=== PATIENT | male | born 1965 | race Caucasian/White ===

== ENCOUNTER 2019-06-01 17:41 | Emergency (ER) | payer SELFPAY ==
[2019-06-01] MEDS ORDERED: ROCURONIUM BROMIDE 50 MG/5 ML VIAL ONE (17:42)
[2019-06-01] MEDS ORDERED: ETOMIDATE INJ 20MG/10ML VIAL ONE (17:42)
[2019-06-01] MEDS ORDERED: PROPOFOL 1,000 MG in APPROPRIATE DILUENT 1 EA IV SCH (18:13)
[2019-06-01] MEDS ORDERED: ROCURONIUM BROMIDE 50 MG/5 ML VIAL IV ONE (18:15)
[2019-06-01] MEDS ORDERED: ETOMIDATE INJ 20MG/10ML VIAL IV ONE (18:15)
--- NOTE | 2019-06-01 18:28 | REPVR ---
EXAM: CT Head Without Contrast EXAM DATE/TIME: 06/01/2019 6:00 PM CLINICAL HISTORY: 53 years old, male; Altered mental status/memory loss; Additional info: Confusion, HTN, stroke like symptoms TECHNIQUE: Imaging protocol: Computed tomography images of the head without contrast. Coronal and sagittal reformatted images were created and reviewed. Radiation optimization: All CT scans at this facility use at least one of these dose optimization techniques: automated exposure control; mA and/or kV adjustment per patient size (includes targeted exams where dose is matched to clinical indication); or iterative reconstruction. COMPARISON: No relevant prior studies available. FINDINGS: Brain: Confluent hypodensity in the right occipital lobe. This is favored to represent an acute to subacute ischemic infarct. Chronic small vessel ischemic changes in the bilateral periventricular white matter. No acute intracranial hemorrhage. No midline shift. Basal cisterns are patent. Ventricles: Normal. No ventriculomegaly. Bones/joints: No acute fracture. Sinuses: Unremarkable as visualized. No acute sinusitis. Mastoid air cells: Visualized mastoid air cells are well aerated. No mastoid effusion. Soft tissues: Unremarkable. IMPRESSION: 1. There appears to be an acute to subacute ischemic infarct in the right occipital lobe. 2. No acute intracranial hemorrhage. Electronically signed by: Maci Charlton On 06/01/2019 18:27:55 PM
[2019-06-01 18:29] LABS: BASO # 0.1 10^3/uL (0.0-0.2); BASO % 0.5 % (0.0-1.0); EOS # 0.1 10^3/uL (0.0-0.50); EOS % 0.3 % (0.0-3.0); HEMATOCRIT 47.7 % (42.0-52.0); HEMOGLOBIN 16.8 g/dl (13.5-17.5); LYMPH # 2.8 10^3/uL (1.5-4.5); MEAN CORPUSCULAR HEMOGLOBIN 31.7 pg (27.0-33.0); MEAN CORPUSCULAR HGB CONC 35.2 g/dl (32.0-36.5); MONO % 4.5 % (0.0-5.0); NEUTROPHILS # 17.4 10^3/uL (1.8-7.7); NEUTROPHILS % 80.8 % (36.0-66.0); PLATELET COUNT, AUTOMATED 361 10^3/uL (150-450); WHITE BLOOD COUNT 21.6 10^3/uL (4.0-10.0)
[2019-06-01 18:42] LABS: INR 0.98; PROTHROMBIN TIME 12.7 SECONDS (11.8-14.0)
[2019-06-01] MEDS ORDERED: niCARdipine IV 40 MG in APPROPRIATE DILUENT 1 EA IV SCH (18:42)
[2019-06-01 18:51] LABS: BLOOD UREA NITROGEN 14 MG/DL (7-18); CALCIUM LEVEL 9.6 MG/DL (8.5-10.1); CARBON DIOXIDE LEVEL 24 MEQ/L (21-32); CHLORIDE LEVEL 108 MEQ/L (98-107); CK-MB VALUE MASS < 1.0 NG/ML (<3.6); CPK CREATINE PHOSPHOKINASE 77 U/L (39-308); CREATININE FOR GFR 1.48 MG/DL (0.70-1.30); GLOMERULAR FILTRATION RATE 52.5 (>56); GLUCOSE, FASTING 223 MG/DL (70-100); POTASSIUM SERUM 3.9 MEQ/L (3.5-5.1); SODIUM LEVEL 142 MEQ/L (136-145); TROPONIN I < 0.02 NG/ML (< 0.10)
[2019-06-01] MEDS ORDERED: NS 1,000 ML IV ONE (19:00)
[2019-06-01] MEDS ORDERED: ISOVUE-370 76% 100ML VIAL (Q9967) As Ordered ONE (19:07)
[2019-06-01 19:27] VITALS: BP 231/131
[2019-06-01] MEDS ORDERED: MIDAZOLAM INJ 2 MG/2 ML VIAL (J2250) As Ordered ONE (19:49)
[2019-06-01] MEDS ORDERED: MIDAZOLAM INJ 2 MG/2 ML VIAL (J2250) IV STA (19:50)
--- NOTE | 2019-06-01 20:25 | REPVR ---
EXAM: CT Angiography Neck With Contrast EXAM DATE/TIME: 06/01/2019 7:17 PM CLINICAL HISTORY: 53 years old, male; Condition or disease; Infarction; Additional info: Stroke TECHNIQUE: Imaging protocol: Axial computed tomographic angiography images of the neck with intravenous contrast using CT angiography protocol. Coronal and sagittal reformatted images were created and reviewed. 3D rendering: MIP and 3D reconstructed images were created and reviewed. Radiation optimization: All CT scans at this facility use at least one of these dose optimization techniques: automated exposure control; mA and/or kV adjustment per patient size (includes targeted exams where dose is matched to clinical indication); or iterative reconstruction. Contrast material: ISOVUE 370;Contrast volume: 100 ml;Contrast route: IV; COMPARISON: No relevant prior studies available. FINDINGS: VASCULATURE: Right common carotid artery: Unremarkable. No stenosis. No dissection or occlusion. Right internal carotid artery: The proximal right ICA demonstrates noncalcified plaque causing an approximate 25% stenosis approximately 12 mm distal to the bifurcation. Right external carotid artery: Unremarkable. No occlusion or stenosis of the origin. Right vertebral artery: Unremarkable. No stenosis. No dissection or occlusion. Left common carotid artery: Unremarkable. No stenosis. No dissection or occlusion. Left internal carotid artery: Intimal thickening at the left carotid bulb does not contribute to stenosis. Left external carotid artery: Unremarkable. No occlusion or stenosis of the origin. Left vertebral artery: The V1 and proximal V2 segments of the left vertebral artery demonstrate severe and critical stenoses. These stenoses spanning a craniocaudal length of approximately 4 cm. No discrete intraluminal plaque is identified. The stenoses could be related to noncalcified atherosclerosis, underlying dissection with mural thrombus not excluded. NECK: Bones/joints: No acute fracture seen. There is mild to moderate cervical degenerative disc disease. Moderate degenerative changes at C1-2. Soft tissues: Normal. No significant soft tissue swelling. The patient is intubated. The endotracheal tube ends above the josé luis. An enteric tube is present. IMPRESSION: 1. 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 2. Mild proximal right ICA stenosis due to noncalcified plaque. COMMENT: Reference per NASCET criteria for degree of stenosis: Mild: less than 50% stenosis. Moderate: 50-69% stenosis. Severe: 70-94% stenosis. Near occlusion: 95-99% stenosis. Electronically signed by: Rivka Leal On 06/01/2019 20:24:39 PM
--- NOTE | 2019-06-01 20:36 | REPVR ---
EXAM: CT Angiography Head With Contrast EXAM DATE/TIME: 06/01/2019 7:17 PM CLINICAL HISTORY: 53 years old, male; Condition or disease; Infarction; Additional info: Stroke TECHNIQUE: Imaging protocol: Computed tomographic angiography images of the head with intravenous contrast using CT angiography protocol. Coronal and sagittal reformatted images were created and reviewed. 3D rendering: MIP and 3D reconstructed images were created and reviewed. Radiation optimization: All CT scans at this facility use at least one of these dose optimization techniques: automated exposure control; mA and/or kV adjustment per patient size (includes targeted exams where dose is matched to clinical indication); or iterative reconstruction. Contrast material: ISOVUE 370;Contrast volume: 100 ml;Contrast route: IV; COMPARISON: No relevant prior studies available. FINDINGS: Right internal carotid artery: Unremarkable. Intracranial segment is patent with no significant stenosis. No aneurysm. Right anterior cerebral artery: Unremarkable. No occlusion or significant stenosis. No aneurysm. Right middle cerebral artery: Unremarkable. No occlusion or significant stenosis. No aneurysm. Right posterior cerebral artery: The right posterior cerebral artery is occluded in the P2 segment following origin of anterior temporal branch. Right vertebral artery: The right vertebral artery is occluded just distal to the PICA origin. Left internal carotid artery: Unremarkable. Intracranial segment is patent with no significant stenosis. No aneurysm. Left anterior cerebral artery: Unremarkable. No occlusion or significant stenosis. No aneurysm. Left middle cerebral artery: Unremarkable. No occlusion or significant stenosis. No aneurysm. Left posterior cerebral artery: Unremarkable. No occlusion or significant stenosis. No aneurysm. Left vertebral artery: The left vertebral artery is occluded just distal to the PICA origin. Basilar artery: The mid the distal basilar artery is occluded or nearly occluded by thrombus or embolus standing a craniocaudal length of approximately 8 mm, image 48 series 403. HEAD: Brain: Transcortical hypodensity in the right occipital lobe most likely representing an area of subacute infarction. No prior CT brain without contrast is available for correlation. A noncontrast CT brain was not obtained with this protocol. The patient is intubated. An enteric tube is present. There is fluid in the oral cavity and nasopharynx. Mild scattered sinus mucosal thickening. Maxillary periapical lucencies are noted. IMPRESSION: 1. 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 2. Occlusion of the right vertebral artery. 3. Occlusion of the left vertebral artery. 4. 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 5. Subacute right occipital infarct. 6. No anterior circulation branch occlusion identified. Electronically signed by: Rivka Leal On 06/01/2019 20:35:58 PM
--- NOTE | 2019-06-01 20:52 | REP ---
Chest x-ray: Portable supine film. History: Post intubation. Findings: EKG monitoring electrodes overlie the chest. The lungs are well inflated and clear. Heart is not enlarged. Pulmonary vasculature is not increased. Endotracheal tube is seen in good position at the level of proximal clavicles. Impression: Endotracheal tube in good position. Otherwise no acute disease. Electronically Signed by Jero Martinez MD 06/01/2019 08:44 P
--- NOTE | 2019-06-01 20:53 | REP ---
Portable chest x-ray: Single view 06:35 p.m. film. History: Tube placement. Comparison study 06/01/2019 at 06:33 p.m. Findings: Endotracheal tube has been advanced slightly in good position just above the level of the transverse aorta. EKG monitoring electrodes overlie the chest. Lungs remain well inflated and clear. Heart is not enlarged. Impression: Endotracheal tube in good position. Electronically Signed by Jero Martinez MD 06/01/2019 08:44 P
[2019-06-02] MEDS ORDERED: MIDAZOLAM INJ 2 MG/2 ML VIAL (J2250) IV STA (09:19)
--- NOTE | 2019-06-03 05:49 | ECGEPIP ---
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
== END 2019-06-01 19:40 | disposition short-term general hospital (02) ==
LOC: M ED 17:41 → EDBD 17:41 → M ED 19:40
DX: I63.49 Cerebral infarction due to embolism of other cerebral artery (principal); I63.431 Cerebral infarction due to embolism of right posterior cerebral artery; R00.1 Bradycardia, unspecified; I65.09 Occlusion and stenosis of unspecified vertebral artery; I65.21 Occlusion and stenosis of right carotid artery; I51.7 Cardiomegaly; I10 Essential (primary) hypertension; Z72.0 Tobacco use
CPT/HCPCS: 31500; 51702; 70450; 70496; 70498; 71045; 80048; 82550; 82553; 82803; 84484; 85025; 85610; 85730; 86850; 86900; 86901; 93005; 93041; 96374; 96375; 99285; J2250; Q9967